=== PATIENT | male | born 1945 | race Caucasian/White ===

== ENCOUNTER 2017-02-25 07:54 | Day surgery (SDC) | payer OTHER ==
--- NOTE | 2017-02-25 07:37 | PDHPUP ---
History & Physical Update H&P update statement: This history and physical update is based on an assessment of the patient which was completed after admission or registration (within 24 hours), but prior to the surgery/procedure. H&P update: H&P reviewed & patient examined, no change in patient's condition since H&P completed
[2017-02-25] MEDS ORDERED: ceFAZolin 2 GM/SWFI 2 GM/20 ML SYR IVP ONE (08:10)
[2017-02-25] MEDS ORDERED: NS 1,000 ML IV ONE (08:11)
[2017-02-25] MEDS ORDERED: LIDOCAINE 1% 2 ML INJ ID PRN (08:11)
[2017-02-25 08:46] VITALS: PULSE 56
[2017-02-25] MEDS ORDERED: PAPAVERINE HCL 60 MG/2 ML SDV ONE (08:48)
[2017-02-25] MEDS ORDERED: THROMBIN (BOVINE) 5,000 UNIT VIAL TP ONE (08:48)
[2017-02-25] MEDS ORDERED: BUPIVACAINE 0.5% 30 ML SDV ONE (08:48)
[2017-02-25] MEDS ORDERED: PROTAMINE SULFATE 50 MG/5 ML VIAL IVP ONE (08:48)
[2017-02-25] MEDS ORDERED: THROMBIN (BOVINE) 20,000 UNIT SPRAY TP ONE (08:49)
[2017-02-25] MEDS ORDERED: PROPOFOL/EMULSION 500 MG/50 ML BOTTLE IV ONE (08:55)
[2017-02-25] MEDS ORDERED: fentaNYL 100 MCG/2 ML INJ ONE ×3 (08:55→10:55)
[2017-02-25] MEDS ORDERED: MIDAZOLAM 2 MG/2 ML VIAL ONE (08:58)
[2017-02-25 09:19] LABS: INR 1.65 (0.83-1.16); PROTIME(PATIENT) 19.6 SEC (12.0-15.0)
[2017-02-25 09:20] LABS: APTT 35.7 SEC (23.0-38.0)
[2017-02-25 09:26] LABS: ANION GAP 12 mEq/L (8-16); CALCIUM 8.9 mg/dL (8.5-10.4); CARBON DIOXIDE 21 mEq/l (22-31); CHLORIDE 111 mEq/L (97-110); CREATININE 2.3 mg/dL (0.7-1.3); GLOMERULAR FILTRATION RATE 28; GLUCOSE 124 mg/dL (70-100); POTASSIUM 3.1 mEq/L (3.5-5.2); SODIUM 144 mEq/L (134-144)
[2017-02-25] MEDS ORDERED: MIDAZOLAM 2 MG/2 ML VIAL IVP ONE (09:30)
[2017-02-25] MEDS ORDERED: LABETALOL HCL 5 MG/ML 20 ML MDV IVP PRN (09:33)
[2017-02-25] MEDS ORDERED: ONDANSETRON 4 MG/2 ML VIAL IVP PRN (09:33)
[2017-02-25] MEDS ORDERED: HYDROmorphONE/DILAUDID 1 MG/ML INJ IVP PRN (09:33)
[2017-02-25] MEDS ORDERED: NALOXONE HCL 0.4 MG/ML INJ IVP PRN (09:33)
[2017-02-25] MEDS ORDERED: PROMETHAZINE HCL 25 MG/ML INJ IVP PRN (09:33)
[2017-02-25] MEDS ORDERED: HYDROCODONE/APAP 5/325 TAB PO PRN (09:33)
[2017-02-25] MEDS ORDERED: MEPERIDINE 25 MG/ML SYR IVP PRN (09:33)
[2017-02-25] MEDS ORDERED: DEXAMETHASONE 4 MG/ML VIAL IVP PRN (09:33)
[2017-02-25] MEDS ORDERED: ALBUTEROL 3 ML DEYVIAL IH PRN (09:33)
[2017-02-25] MEDS ORDERED: ACETAMINOPHEN 500 MG TAB PO PRN (09:33)
--- NOTE | 2017-02-25 09:33 | PDANEPAE ---
ANE History of Present Illness 71 year old male for scar revision and AV fistula. History of HTN, CAD, Renal transplant, Obesity. ANE Past Medical History - Cardiovascular History Hx Hypertension: Yes Hx Arrhythmias: Yes Hx Coronary Artery / Peripheral Vascular Disease: Yes Hx CHF / Valvular Disease: Yes Cardiovascular History Comment: A FIB STATUS POST MAZE. CABG. AVR. HYPERLIPIDEMIA - Pulmonary History Hx COPD: No Hx Asthma/Reactive Airway Disease: No Hx Recent Upper Respiratory Infection: No Hx Oxygen in Use at Home: No Hx Sleep Apnea: Yes Sleep Apnea Screening Result - Last Documented: Positive - Neurologic History Hx Cerebrovascular Accident: No Hx Seizures: No Hx Dementia: No Neurologic History Comment: NEUROPATHY DIABETIC-feet - Endocrine History Hx Diabetes: Yes Endocrine History Comment: DM - INSULIN - Renal History Hx Renal Disorders: Yes Renal History Comment: CHRONIC RENAL FAILURE. KIDNEY TRANSPLANT on R side - Liver History Hx Hepatic Disorders: Yes Hepatic History Comment: CHOLECYSTECTOMY - Neurological & Psychiatric Hx Hx Neurological and Psychiatric Disorders: No - Cancer History Hx Cancer: No - Congenital Disorder History Hx Congenital Disorders: No - GI History Hx Gastrointestinal Disorders: Yes Gastrointestinal History Comment: ACID REFLUX - Other Health History Other Health History: NEG - Chronic Pain History Chronic Pain: No - Surgical History Prior Surgeries: CABG QUAD & MAZE PROCEDURE & AVR 2012. KIDNEY TRANSPLANT 2014. CHOLECYSTECTOMY. AV FISTULA. NECK CATHETER PLACEMENT. L TKA. ANKLE R ANE Review of Systems Review of Systems: - Exercise capacity METS (RN): 4 METS ANE Patient History - Allergies Allergies/Adverse Reactions: clindamycin Allergy (Verified 02/19/17 15:20) ertapenem Allergy (Verified 02/19/17 15:20) hydralazine Allergy (Verified 02/19/17 15:20) rivaroxaban Allergy (Verified 11/02/15 16:52) vancomycin Allergy (Verified 02/19/17 15:20) - Home Medications Home Medications: Furosemide 11/02/15 [Last Taken 02/25/17 06:00] Lantus Solostar 11/02/15 [Last Taken 02/25/17 06:00] Magnesium 11/02/15 [Last Taken 02/24/17] Metoprolol Succinate 11/02/15 [Last Taken 02/24/17] Myfortic 11/02/15 [Last Taken 02/24/17] Potassium 11/02/15 [Last Taken 02/24/17] Pravastatin Sodium 11/02/15 [Last Taken 02/24/17] Prednisone 11/02/15 [Last Taken 02/24/17] Ropinirole HCl 11/02/15 [Last Taken 02/24/17] Tacrolimus 11/02/15 [Last Taken 11/02/15] Tamsulosin HCl 11/02/15 [Last Taken 02/24/17] Warfarin Sodium 11/02/15 [Last Taken 02/23/17] Envarsus Xr 02/19/17 [Last Taken 02/24/17] Ferrous Sulfate 02/19/17 [Last Taken 02/24/17] Norvasc 02/19/17 [Last Taken 02/24/17] Potassium Phosphate 02/19/17 [Last Taken 02/24/17] - NPO status NPO Since - Liquids (Date): 02/25/17 NPO Since - Liquids (Time): 06:15 NPO Since - Solids (Date): 02/24/17 NPO Since - Solids (Time): 19:30 - Smoking Hx Smoking Status: Former smoker - Family Anes Hx Family Hx Anesthesia Complications: NEG ANE Labs/Vital Signs - Labs Result Diagrams: 02/25/17 09:00 - Vital Signs Blood Pressure: 144/106 Heart Rate: 56 Respiratory Rate: 16 O2 Sat (%): 93 Height: 187.96 cm Weight: 124.284 kg ANE Physical Exam - Airway Mallampati Score: Class 2 Mouth exam: normal dental/mouth exam - Pulmonary Pulmonary: no respiratory distress - Cardiovascular Cardiovascular: regular rate and rhythym - ASA Status ASA Status: III ANE Anesthesia Plan Anesthesia Plan: GA w LMA
[2017-02-25] MEDS ORDERED: PROPOFOL 200 MG/20 ML VIAL ONE (09:57)
--- NOTE | 2017-02-25 10:35 | POSTOPPROG ---
Post Op Note Date of Operation: 02/25/17 Surgeon: Marko Taylor Bus Escort: Renetta Humphries Anesthesiologist: Juliana Galvin Anesthesia: LMA Pre-op Diagnosis: painful chest wall mass, r wrist venous aneurysm Post-op Diagnosis: same, plus sub xiphoid ventral hernia Procedure: excision painful chest wall mass, repair of VH, resection venous aneurysm Findings: hernia, keloid scars, venous aneurysm Inf/Abcess present in the surg proc area at time of surgery?: No EBL: 50-100 Complications: none Specimen(s): to pathology
[2017-02-25] MEDS: fentaNYL 100 MCG/2 ML INJ IVP PRN ×2 (10:56→11:08)
[2017-02-25 11:34] VITALS: TEMP 97.2
[2017-02-25] MEDS ORDERED: HYDROCODONE/APAP 5/325 TAB ONE (12:08)
[2017-02-25 12:11] VITALS: BP 131/83; O2SAT 89
--- NOTE | 2017-02-25 12:34 | POSTANESTH ---
Post Anesthetic Evaluation Cardiovascular Status: Normal, Stable Respiratory Status: Normal, Stable Level of Consciousness/Mental Status: Mildly Sleepy, Arousable Pain Control: Adequate, Prn Tx Ordered Nausea/Vomiting Control: Adequate, Prn Tx Ordered Complications Possibly Related to Anesthesia: None Noted
[2017-02-25 14:32] VITALS: RESP 16
--- NOTE | 2017-03-05 03:22 | GOP ---
[f rep st] OPERATIVE REPORT DATE OF OPERATION: 02/25/2017 SURGEON: Marko Taylor MD CHAIRMAN EMERITUS: MELISSA Perez. ANESTHESIOLOGIST: Dr. Juliana Galvin. PREOPERATIVE DIAGNOSIS: 1. Painful sternal chest mass. 2. 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 POSTOPERATIVE DIAGNOSIS: 1. Painful sternal chest mass. 2. 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 3. Subxiphoid ventral hernia. PROCEDURE PERFORMED: 1. Excision of painful chest wall mass with advancement flap closure. 2. Repair of ventral hernia. 3. Resection of right wrist venous aneurysm. FINDINGS: The patient was found to have a 4 cm subxiphoid ventral hernia with lipomatous tissue prot ruding up through the wound. He had a long 15 cm area of nodularity over the sternum, which was pain ful to touch, but appeared to be benign as well as 2 small Q-waves. He had a previous drains from hi s heart surgery. DESCRIPTION OF PROCEDURE: Patient was taken operating room where he received satisfactory general en dotracheal anesthesia by Dr. Galvin. He was placed in the supine position with his arms outstretched on an arm board. He was prepped and draped in usual sterile fashion. A short longitudinal incision was made over the venous abnormality just above his wrist. Dissection carried down through the subc utaneous tissue and the skin flaps were developed. The dilated aneurysmal varicosity was dissected f ree. Multiple feeding branches were hemoclipped and divided and the lesion was removed. The wound w as closed with 4-0 Monocryl subcuticular sutures and infiltrated with 0.5% Marcaine. Attention was t hen turned to the external lesion. A longitudinal incision was made to excise the entire painful sca r and nodules. After having done this, it was discovered a ventral hernia at the base of the sternum just below the xiphoid. Large lipomatous tissue was dissected free from the hernia defect, but that was removed; however, the defect was then closed directly with interrupted #1 Ethibond [id number] ht sutures and the wound was infiltrated with 0.5% Marcaine. The chest wound was closed with advance ment flap closures. The skin, subcutaneous tissue were elevated up bilaterally until they could be a dvanced to the midline where they were closed with interrupted 2-0 Vicryl sutures for the fascia and subcutaneous tissue and a running 3-0 Monoderm Quill suture for the skin. All wounds were infiltrate d with 0.5% Marcaine. Two other small keloid nodules were excised and closed with 4-0 Monocryl subcu ticular sutures in the upper abdomen. He tolerated the procedure well, taken to the recovery room in good condition. No complications. /[id number]/MODL
== END 2017-02-25 13:50 | disposition home or self-care (01) ==
LOC: FSGY 07:54
PROVIDERS: ATTEND Surgery
PROC: 05BD0ZZ Excision of Right Cephalic Vein, Open Approach (ICD-10-PCS; principal; 2017-02-25 09:45)
PROC: 0JB60ZX Excision of Chest Subcutaneous Tissue and Fascia, Open Approach, Diagnostic (ICD-10-PCS; principal; 2017-02-25 09:45)
PROC: 0WQF0ZZ Repair Abdominal Wall, Open Approach (ICD-10-PCS; principal; 2017-02-25 09:45)
DX: I72.1 Aneurysm of artery of upper extremity (principal); K43.9 Ventral hernia without obstruction or gangrene; L91.0 Hypertrophic scar; D17.9 Benign lipomatous neoplasm, unspecified; M25.532 Pain in left wrist; N18.4 Chronic kidney disease, stage 4 (severe); I25.10 Atherosclerotic heart disease of native coronary artery without angina pectoris; E11.22 Type 2 diabetes mellitus with diabetic chronic kidney disease; E78.5 Hyperlipidemia, unspecified; I12.9 Hypertensive chronic kidney disease with stage 1 through stage 4 chronic kidney disease, or unspecified chronic kidney disease; G47.33 Obstructive sleep apnea (adult) (pediatric); I35.1 Nonrheumatic aortic (valve) insufficiency; I48.91 Unspecified atrial fibrillation; N40.0 Benign prostatic hyperplasia without lower urinary tract symptoms; M10.9 Gout, unspecified; G25.81 Restless legs syndrome; G89.29 Other chronic pain; I86.8 Varicose veins of other specified sites; Z87.891 Personal history of nicotine dependence; Z87.442 Personal history of urinary calculi; Z82.49 Family history of ischemic heart disease and other diseases of the circulatory system; Z95.1 Presence of aortocoronary bypass graft; Z96.651 Presence of right artificial knee joint; Z95.2 Presence of prosthetic heart valve; Z94.0 Kidney transplant status
CPT/HCPCS: J0690; J1644; J2250; J2440; J2704; J2720; J3010